=== PATIENT | female | born 1945 | race Caucasian/White ===

== ENCOUNTER 2017-08-03 18:03 | Emergency (ER) | payer MEDICAID ==
[~2017-08-03] VITALS: Ht 152.4 cm; Wt 61.0 kg
[~2017-08-03 18:03] MED LIST: ALEN70TA3 PO; ALEN70TA46 PO; ASPI-1159 PO; ATOR-2 PO; CLOP75TA33 PO; LOSA50TA20 PO; METO25TA6 PO
[2017-08-03] MEDS ORDERED: TETANUS, DIPHTHERIA, PERTUSSIS VAC/PF 0.5ML (>7YR OLD) IM ONE (19:00)
[2017-08-03] MEDS ORDERED: WARFARIN SODIUM 3MG TABLET PO ONE (21:15)
[2017-08-04 00:13] VITALS: BP 167/88
[2017-08-04] MEDS ORDERED: HYDROCODONE/ACETAMINOPHEN 5/325MG TABLET PO ONE (01:00)
== END 2017-08-04 00:21 | disposition home or self-care (01) ==
LOC: ER 19:22
DX: S61.012A Laceration without foreign body of left thumb without damage to nail, initial encounter (principal); I10 Essential (primary) hypertension; H40.9 Unspecified glaucoma; I25.10 Atherosclerotic heart disease of native coronary artery without angina pectoris; I25.2 Old myocardial infarction; Z79.82 Long term (current) use of aspirin; W26.0XXA Contact with knife, initial encounter; Y93.89 Activity, other specified; Y92.89 Other specified places as the place of occurrence of the external cause; Y99.8 Other external cause status
CPT/HCPCS: 90471; 90715; 99283

== ENCOUNTER 2021-12-15 12:09 | Emergency (ER) | payer MEDICAID ==
[~2021-12-15] VITALS: Ht 137.2 cm; Wt 60.0 kg
[~2021-12-15 12:09] MED LIST changes: -ALEN70TA46 PO; +ALEN70TA79 PO; -ASPI-1159 PO; +ASPI-1497 PO; -LOSA50TA20 PO; +LOSA50TA41 PO
[2021-12-15] MEDS ORDERED: ACETAMINOPHEN WITH CODEINE 300/30MG TABLET PO STA (13:48)
[2021-12-15 14:28] LABS: BASOPHILS % 1.2 % (0.0-2.0); EOSINOPHILS % 2.6 % (0.0-5.0); HEMOGLOBIN. 15.2 g/dL (12.0-16.0); LYMPHOCYTES % 10.1 % (20.0-50.0); MEAN CORPUSCULAR HEMOGLOBIN 32.1 pg (28.0-32.0); MEAN PLATELET VOLUME 7.9 fl (7.4-10.4); MONOCYTES % 4.5 % (2.0-8.0); NEUTROPHILS % 81.6 % (40.0-76.0); PLATELET 697 x1000/uL (130-400); RED BLOOD CELL COUNT 4.74 mill/uL (4.2-5.4); RED CELL DISTRIBUTION WIDTH 16.9 % (11.6-14.6)
[2021-12-15 14:38] LABS: CHLORIDE 105 mEq/L (98-107)
[2021-12-15 16:00] VITALS: BP 160/69
[2021-12-15] MEDS ORDERED: IBUP-2029 MT (16:20)
[2021-12-15] MEDS ORDERED: CYCL10TA21 MT (16:20)
== END 2021-12-15 17:07 | disposition home or self-care (01) ==
LOC: ER 12:09
DX: R51.9 Headache, unspecified (principal); M54.12 Radiculopathy, cervical region; I11.9 Hypertensive heart disease without heart failure; I69.351 Hemiplegia and hemiparesis following cerebral infarction affecting right dominant side; Z79.82 Long term (current) use of aspirin; Z98.890 Other specified postprocedural states
CPT/HCPCS: 36415; 80053; 85025; 99284

== ENCOUNTER 2022-10-30 20:02 | Emergency (ER) | payer MEDICAID ==
[~2022-10-30] VITALS: Ht 170.2 cm; Wt 57.3 kg
[~2022-10-30 20:02] MED LIST changes: -ALEN70TA3 PO; +ALEN70TA84 PO; +CYCL10TA21 MT; +IBUP-2029 MT
[2022-10-30 20:40] VITALS: BP 204/76
== END 2022-10-31 02:27 | disposition left against medical advice (07) ==
LOC: ER 20:12
DX: M25.552 Pain in left hip (principal); Z53.21 Procedure and treatment not carried out due to patient leaving prior to being seen by health care provider
CPT/HCPCS: 99281